=== PATIENT | female | born 1945 | race Caucasian/White ===

== ENCOUNTER → 2018-07-06 14:18 | Outpatient (CLI) | payer MEDICARE, OTHER, SELFPAY ==
[2018-07-06 14:41] LABS: Add Manual Diff / Slide Review NO; Basophils Percent Auto 0.8 % (0-2); Hematocrit 38.4 % (36-46); Hemoglobin 12.6 g/dL (12.0-16.0); Lymphocytes Percent Auto 35.6 % (25-40); Mean Corpuscular HGB Conc 32.8 % (30-36); Mean Corpuscular Hemoglobin 28.7 PG (26-34); Mean Corpuscular Volume 87.4 fL (80-100); Monocytes Percent Auto 8.8 % (3-14); Neutrophils Absolute Auto 3800 /uL (3000-5900); Neutrophils Percent Auto 53.8 % (50-75); Platelet Count 332 X10^3/uL (150-400); Red Cell Distribution Width 13.5 % (11.6-14.8)
[2018-07-06 14:57] LABS: Alanine Aminotransferase 24 IU/L (9-52); Albumin 4.3 g/dL (3.5-5.0); Albumin Globulin Ratio 1.5 (1.0-2.8); Alkaline Phosphatase 90 U/L (38-126); Aspartate Aminotransferase 27 IU/L (14-36); BUN Creatinine Ratio 15.6 (6-22); Bilirubin Total 0.3 mg/dL (0.2-1.3); Blood Urea Nitrogen 14 mg/dL (7-17); Calcium 9.1 mg/dL (8.4-10.2); Carbon Dioxide 31 mmol/L (22-32); Chloride 103 mmol/L (98-107); Estimated Glomerular Filt Rate > 60.0 mL/min (>60); Globulin 2.8 g/dL (1.7-4.1); Glucose 111 mg/dL (80-110); HEMOLYSIS < 15 (0-50); Potassium 4.1 mmol/L (3.4-5.1); Sodium 141 mmol/L (137-145); Total Protein 7.1 g/dL (6.3-8.2)
== END ==
PROVIDERS: Family Provider Nurse Practitioner Family; PCP Nurse Practitioner Family; Visit Provider Family Medicine
DX: R14.0 Abdominal distension (gaseous) (principal); R10.9 Unspecified abdominal pain
CPT/HCPCS: 36415; 80053; 85025

== ENCOUNTER → 2018-07-07 11:41 | Outpatient (CLI) | payer MEDICARE, OTHER, SELFPAY | PROVIDERS: Visit Provider Family Medicine | DX: R14.0 Abdominal distension (gaseous) (principal) | CPT/HCPCS: 86677 ==

== ENCOUNTER → 2018-07-18 12:55 | Outpatient (CLI) | payer MEDICARE, OTHER, SELFPAY ==
[2018-07-18 14:00] LABS: Hemoglobin A1C% w Est Avg Glu 5.7 % (4.0-6.0)
== END ==
PROVIDERS: Family Provider Nurse Practitioner Family; PCP Nurse Practitioner Family; Visit Provider Family Medicine
DX: R73.9 Hyperglycemia, unspecified (principal)
CPT/HCPCS: 36415; 83036

== ENCOUNTER 2018-10-17 09:28 | Day surgery (SDC) | payer MEDICARE, OTHER, SELFPAY ==
[2018-10-17 09:41] VITALS: BMI 22.4
[2018-10-17] MEDS: SODIUM CHLORIDE 0.9% 1,000 ML 200 ML IV (10:00)
[2018-10-17 10:14] VITALS: BP 111/63; PULSE 72; RESP 20; TEMP 36.9; O2SAT 98
--- NOTE | 2018-10-17 11:04 | PM.HP.1 ---
History of Present Illness Date Patient Seen: 10/17/18 Time Patient Seen: 11:04 Chief complaint: Colonoscopy/EGD; [id number] Narrative: Patient here for an EGD to evaluate upper abdominal pain in for screening colonoscopy. Abdominal pain process. Patient History Medical History Chronic back pain (Chronic) Foot pain (Chronic) Lumbar disc disease (Chronic) Osteoarthritis (Chronic) Osteoporosis (Chronic) Shoulder pain (Chronic) Skin problem (Chronic) Chicken pox (Resolved) Measles (Resolved) Mumps (Resolved) Surgical History History of cataract removal with insertion of prosthetic lens (Resolved ~2014) History of surgical removal of ganglion cyst (Resolved ~1958) History of tubal ligation (Resolved ~1978) Family & Social History Family History: Reviewed 10/17/18 by Cosme Bingham MD Social History: household members spouse other hiking,kayaking Tobacco & Substance use: Smoking Status Former smoker alcohol intake current Meds Home Medications Medication Instructions Recorded Confirmed Type Calcium Antacid 360 mg PO BID 10/17/18 10/17/18 History ascorbic acid (vitamin C) 50 mg PO BID 10/17/18 10/17/18 History cholecalciferol (vitamin D3) 800 units PO BID 10/17/18 10/17/18 History magnesium 175 mg PO BID 10/17/18 10/17/18 History vitamin K2 50 mg PO BID 10/17/18 10/17/18 History Allergies Allergy/AdvReac Type Severity Reaction Status Date / Time No Known Drug Allergies Allergy Verified 06/02/18 09:22 Review of Systems Review of Systems All systems reviewed & are unremarkable except as noted in HPI and below Musculoskeletal Comments: Chronic back issues Exam Vital Signs (past 8 hours): - 10/17/18 10:14 Temperature 98.5 F Pulse Rate 72 Respiratory Rate 20 Blood Pressure 111/63 Pulse Oximetry 98 Oxygen Delivery Method Room Air Narrative Exam Narrative: Been cooperative woman in no apparent distress. Lungs are clear to auscultation. No rales rhonchi. Heart regular rate and rhythm without murmur gallop. Abdomen is scaphoid soft nontender without masses. No hernias appreciated. Assessment & Plan Plan: Assessment/Plan Narrative: Patient for a EGD to evaluate upper abdominal pain of for screening colonoscopy. I have discussed the procedure and the rationale with the patient including risks of bleeding, perforation which would necessitate a major operation, failure to find remove all lesions and the potential to tattoo. They appeared to understand and wished to proceed.
--- NOTE | 2018-10-17 11:14 | PM.PREOP ---
Pre-operative Note Interval Note Pre-op Check: Yes History & Physical exam performed today by Physician Changes: No ASA Class (for procedural sedation): I
[2018-10-17] MEDS: fentaNYL 250 MCG/5 ML INJ IV (11:28)
[2018-10-17] MEDS: MIDAZOLAM 5 MG/5 ML VIAL IV (11:29)
[2018-10-17] MEDS: LIDOCAINE 4% SOLN 50 ML 20 ML TOP (11:30)
[2018-10-17] MEDS: TETRACAINE/BENZOCAINE/BUTAMBEN (CETACAINE) BOTTLE 1 SPRAY TOP (11:31)
--- NOTE | 2018-10-17 11:59 | PM.OP.ENDO ---
Operative Date/Time/Diagnoses Date of procedure: 10/17/18 Time of procedure: 12:00 Pre-op diagnosis: Upper abdominal pain. Screening colonoscopy. Post-op diagnosis: same (Normal upper tract. Occasional sigmoid diverticulosis. Small internal hemorrhoids.) Procedure & Clinicians Study performed: EGD. Colonoscopy. Same procedure as scheduled: Yes Indications: Evaluate cause of upper abdominal pain. Screening colonoscopy exam. Surgeon: Cosme Bingham Procedure Notes SCOAP/Timeout: Performed Procedure in detail: The patient had topical anesthetic applied to oropharynx. She was placed in left lateral decubitus position and underwent IV sedation directed by the surgeon consisting of fentanyl and Versed. A bite block was inserted and the scope was advanced through it into the esophagus. The esophagus was unremarkable. GE junction was noted at 39 cm from the incisors. The stomach insufflated well. There were no lesions seen in the body, antrum or at the incisura. The pyloric channel was patent. The duodenum was unremarkable to the 4th part. The scope was brought back into the stomach and retroflexed. The proximal stomach unremarkable. The scope was straightened and brought out through the esophagus again. No lesions were seen. The scope was removed and the patient tolerated the procedure well. The patient was placed in the left lateral decubitus position and underwent IV sedation directed by the surgeon consisting of fentanyl and Versed. Digital exam was unremarkable. The scope was inserted and advanced through the rectum into the sigmoid, descending, transverse, and ascending colon. It was very difficult to progress through this patient's colon. It appeared to be quite redundant and very difficult to insufflate. We added a stiffener, applied pressure, repositioned the patient. Ultimately The cecum was reached identified by the ileocecal valve and the appendiceal opening. The scope was gradually brought out. No Polyps were found . The scope ultimately was retroflexed in the rectum. The appearance was consistent with small internal hemorrhoids without ulceration. The scope was removed and the patient tolerated the procedure well Scope withdrawal time: 8 min Sedation minutes: 31 Findings: diverticulosis (A few sigmoid), internal hemorrhoids and other findings (Normal upper endoscopy) Specimen(s): none sent Complications: none Recommendations: Other recommendation (Given patient's age, further screening colonoscopy is not recommended.) Plan for aftercare: Follow-up with primary care physician Follow up: as needed Disposition: PACU
[2018-10-17 12:02] VITALS: BP 96/58; PULSE 60; RESP 14; TEMP 36.4; O2SAT 97
[2018-10-17 12:35] VITALS: BP 109/55; PULSE 56; RESP 16; TEMP 36.8; O2SAT 100
[2018-10-17 13:58] LABS: Adenovirus F 40/41 Not Detected (Not Detect); Astrovirus Not Detected (Not Detect); Campylobacter Not Detected (Not Detect); Clostridium difficile toxin AB Not Detected (Not Detect); Cryptosporidium Not Detected (Not Detect); Cyclospora cayetanensis Not Detected (Not Detect); Entamoeba histolytica Not Detected (Not Detect); Enteroaggregative E.coli Not Detected (Not Detect); Enteropathogenic E.coli Not Detected (Not Detect); Enterotoxigenic E.coli It/st Not Detected (Not Detect); Giardia lamblia Not Detected (Not Detect); Norovirus GI/GII Not Detected (Not Detect); Plesiomonsa shigelloides Not Detected (Not Detect); Rotavirus A Not Detected (Not Detect); Salmonella Not Detected (Not Detect); Sapovirus Not Detected (Not Detect); Shiga-like toxin-prod E.coli Not Detected (Not Detect); Shigella/Enteroinvasive E.coli Not Detected (Not Detect); Vibrio Not Detected (Not Detect); Vibrio cholerae Not Detected (Not Detect); Yersinia enterocolitica Not Detected (Not Detect)
== END 2018-10-17 12:49 | disposition home or self-care (01) ==
PROVIDERS: PCP Family Medicine; Visit Provider Specialist
PROC: 0DJ08ZZ Inspection of Upper Intestinal Tract, Via Natural or Artificial Opening Endoscopic (ICD-10-PCS; CPT 43235; principal; 2018-10-17 10:45)
PROC: 0DJD8ZZ Inspection of Lower Intestinal Tract, Via Natural or Artificial Opening Endoscopic (ICD-10-PCS; CPT 45378; 2018-10-17 10:45)
DX: Z12.11 Encounter for screening for malignant neoplasm of colon (principal); R10.10 Upper abdominal pain, unspecified; Z87.891 Personal history of nicotine dependence; K57.30 Diverticulosis of large intestine without perforation or abscess without bleeding; K64.8 Other hemorrhoids
CPT/HCPCS: 43235; G0121; 87507; 99152; 99153; J2250; J3010

== ENCOUNTER → 2019-02-08 12:13 | Outpatient (CLI) | payer MEDICARE, OTHER, SELFPAY ==
--- NOTE | 2019-02-08 12:16 | DI.RAD.S_ITS ---
PROCEDURE: XR RIBS LT MIN 3V W CXR1V INDICATIONS: fall, pain TECHNIQUE: 2 views of the left ribs were acquired, along with a single view chest. COMPARISON: [facility], SHOULDER MINIMUM 2 VIEW LEFT, 01/20/2014, 11:12. [facility], SHOULDER MINIMUM 2VIEW RIGHT, 01/20/2014, 11:12. FINDINGS: Surgical changes and devices: None. Bones and chest wall: Suspect nondisplaced left 10th and 11th rib fractures. No suspicious bony lesions. Overlying soft tissues appear unremarkable. Bilateral chronic humeral neck fractures. Lungs and pleura: No pneumothorax. Trace left pleural effusion. Lungs appear clear. Mediastinum: Mediastinal contours appear normal. Heart size is normal. IMPRESSION: 1. Suspect nondisplaced left 10th and 11th rib fractures. 2. Trace left effusion may be hemothorax. 3. Old humeral head fractures bilaterally. Dictated by: Dave Correa M.D. on 02/08/2019 at 17:04 Approved by: Dave Correa M.D. on 02/08/2019 at 17:14
== END ==
PROVIDERS: Family Provider Physical Therapist; PCP Family Medicine; Visit Provider Family Medicine
DX: R07.81 Pleurodynia (principal)
CPT/HCPCS: 71101

== ENCOUNTER → 2019-04-04 15:03 | Outpatient (CLI) | payer MEDICARE, OTHER, SELFPAY ==
--- NOTE | 2019-04-04 15:07 | DI.RAD.S_ITS ---
PROCEDURE: XR LUMBAR SPINE MIN 4V INDICATIONS: Mid-Upper and lower back pain TECHNIQUE: 3 views of the lumbar spine were acquired. COMPARISON: [facility], , L-SPINE 2-3 VIEWS, 11/03/2017, 15:17. FINDINGS: Bones: 5 nonrib-bearing vertebrae are present. There are rudimentary ribs at the presumed T12 level. There is mild retrolisthesis at T12-L1, L1-L2, and L2-L3 which appear similar to the prior study. Minimal anterolisthesis is also redemonstrated at L3-L4 and L4-L5. Visualized osseous structures appear osteopenic. There is new moderate endplate scalloping along the superior and inferior endplates of L2 and L3 compared to the prior study. Mild superior endplate scalloping of the L4 vertebral body is also new from the prior study. A mild superior endplate compression deformity of the T12 vertebral body and inferior endplate scalloping at L4 are redemonstrated. No retropulsed fragments in the spinal canal. There is mild to moderate facet arthropathy in the lower lumbar spine. Soft tissues: Overlying bowel gas pattern is normal. No suspicious soft tissue calcifications. Oblique images: No pars defects. IMPRESSION: 1. New endplate compression deformities in the L2, L3, and L4 vertebral bodies. No retropulsed fragments in the spinal canal. 2. Mild multilevel spondylolisthesis appear similar to the prior study. 3. Facet arthropathy redemonstrated in the lower lumbar spine. Dictated by: Roberto Julien M.D. on 04/04/2019 at 16:32 Approved by: Roberto Julien M.D. on 04/04/2019 at 16:38
--- NOTE | 2019-04-04 15:07 | DI.RAD.S_ITS ---
PROCEDURE: XR SACRUM COCCYX MIN 2V INDICATIONS: Mid-Upper and lower back pain TECHNIQUE: 3 views of the sacrum and coccyx acquired. COMPARISON: [facility], [place], L-SPINE 2-3 VIEWS, 11/03/2017, 15:17. [facility], [place], XR LUMBAR SPINE MIN 4V, 04/04/2019, 15:14. FINDINGS: Bones: There is osteopenia of the visualized osseous structures. Endplate scalloping is demonstrated within the lower lumbar spine as described on the concurrent study of the lumbar spine. No definite fracture demonstrated in the sacrum or coccyx. Visualized bony pelvis also appears intact. Soft tissues: Visualized bowel gas pattern is normal. No suspicious soft tissue densities. IMPRESSION: 1. No definite sacral fracture identified. 2. Mild endplate compression deformities within the lower lumbar spine noted. Recommend correlation with concurrent lumbar spine report. Dictated by: Roberto Julien M.D. on 04/04/2019 at 16:45 Approved by: Roberto Julien M.D. on 04/04/2019 at 16:48
--- NOTE | 2019-04-04 15:07 | DI.RAD.S_ITS ---
PROCEDURE: XR THORACIC SPINE 3V INDICATIONS: Mid-Upper and lower back pain TECHNIQUE: 3 views of the thoracic spine were acquired. COMPARISON: [facility], [place], L-SPINE 2-3 VIEWS, 11/03/2017, 15:17. [facility], [place], XR LUMBAR SPINE MIN 4V, 04/04/2019, 15:14. FINDINGS: Bones: There is mild inferior endplate scalloping within the T7 vertebral body of indeterminate acuity. No retropulsed fragments in the spinal canal. A mild superior endplate compression deformity of the T12 vertebral body is redemonstrated, similar in appearance to the prior study from 2017. Mild superior endplate scalloping at L1 and L2 are new compared to the prior study and are described on the concurrent lumbar spine exam. No suspicious bony lesions. 12 pairs of ribs are noted, and appear intact where visualized. There are rudimentary ribs at T12. Soft tissues: No paravertebral stripe thickening. IMPRESSION: 1. Mild inferior endplate scalloping of the T7 vertebral body of indeterminate acuity. 2. Mild superior endplate compression deformity at T12 appears similar to the prior study. 3. Please refer to report for concurrent study of the lumbar spine for compression deformities within the lumbar spine. Dictated by: Roberto Julien M.D. on 04/04/2019 at 16:48 Approved by: Roberto Julien M.D. on 04/04/2019 at 16:50
== END ==
PROVIDERS: Family Provider Physical Therapist; PCP Family Medicine; Visit Provider Family Medicine
DX: M54.6 Pain in thoracic spine (principal); M54.5 Low back pain; M47.816 Spondylosis without myelopathy or radiculopathy, lumbar region; M43.16 Spondylolisthesis, lumbar region; M85.88 Other specified disorders of bone density and structure, other site
CPT/HCPCS: 72072; 72110; 72220

== ENCOUNTER → 2019-08-29 08:46 | Outpatient (CLI) | payer MEDICARE, OTHER, SELFPAY ==
[2019-08-29 09:26] LABS: Add Manual Diff / Slide Review NO; Basophils Absolute Auto 0 /uL (0-100); Basophils Percent Auto 0.8 % (0-2); Eosinophils Absolute Auto 100 /uL (0-450); Eosinophils Percent Auto 2.1 % (2-4); Hematocrit 39.9 % (36-46); Hemoglobin 13.1 g/dL (12.0-16.0); Lymphocytes Absolute Auto 2500 /uL (1100-4500); Lymphocytes Percent Auto 40.5 % (25-40); Mean Corpuscular HGB Conc 32.8 % (30-36); Mean Corpuscular Hemoglobin 29.1 PG (26-34); Mean Corpuscular Volume 88.7 fL (80-100); Monocytes Absolute Auto 500 /uL (0-900); Monocytes Percent Auto 8.1 % (3-14); Neutrophils Absolute Auto 3000 /uL (1500-7000); Neutrophils Percent Auto 48.5 % (50-75); Platelet Count 379 X10^3/uL (150-400); Red Blood Cell Count 4.49 X10^6/uL (4.0-5.2); Red Cell Distribution Width 14.3 % (11.6-14.8); White Blood Cell Count 6.2 X10^3/uL (4.5-11.0)
[2019-08-29 09:52] LABS: Alanine Aminotransferase 13 IU/L (9-52); Albumin 4.1 g/dL (3.5-5.0); Albumin Globulin Ratio 1.4 (1.0-2.8); Alkaline Phosphatase 147 U/L (38-126); Aspartate Aminotransferase 26 IU/L (14-36); BUN Creatinine Ratio 24.3 (6-22); Bilirubin Total 0.3 mg/dL (0.2-1.3); Blood Urea Nitrogen 17 mg/dL (7-17); Calcium 8.9 mg/dL (8.4-10.2); Carbon Dioxide 31 mmol/L (22-32); Chloride 105 mmol/L (98-107); Cholesterol 224 mg/dL (140-199); Estimated Glomerular Filt Rate > 60.0 mL/min (>60); Glucose 91 mg/dL (80-110); HDL Cholesterol 69 mg/dL (40-60); HEMOLYSIS < 15 (0-50); LDL Cholesterol Calculated 136 mg/dL (<100); Potassium 3.7 mmol/L (3.4-5.1); Sodium 140 mmol/L (137-145); Total Protein 7.1 g/dL (6.3-8.2); Triglycerides 93 mg/dL (35-150)
[2019-08-29 10:01] LABS: Vitamin D 25 Hydroxy (D3) 51.5 ng/mL (30.0-100.0)
[2019-08-29 10:48] LABS: Calcium 24 Hour Urine 286 mg/day (100-300); Collection Time Urine 24 Hours; Total Volume Urine 2200 mL
[2019-08-29 11:31] LABS: Thyroid Stimulating Hormone 1.88 uIU/mL (0.47-4.68)
[2019-08-30 16:30] LABS: Free T3, Triiodothyronine Free 4.02 pg/mL (2.77-5.27); Free T4, Direct Thyroxine 1.34 ng/dL (0.78-2.19)
[2019-09-01 12:19] LABS: Cortisol, Free, Urine 13.4 mcg/24 h (4.0-50.0); Total Volume 2200 mL
== END ==
PROVIDERS: Family Provider Physical Therapist; PCP Family Medicine; Visit Provider Family Medicine
DX: M81.0 Age-related osteoporosis without current pathological fracture (principal); Z13.220 Encounter for screening for lipoid disorders; Z79.899 Other long term (current) drug therapy; E78.5 Hyperlipidemia, unspecified
CPT/HCPCS: 80053; 80061; 82306; 82340; 82530; 84439; 84443; 84481; 85025

== ENCOUNTER → 2020-04-17 13:59 | Outpatient (CLI) | payer MEDICARE, OTHER, SELFPAY | PROVIDERS: Family Provider Physical Therapist; PCP Family Medicine; Referring Provider Family Medicine; Visit Provider Family Medicine | DX: M81.0 Age-related osteoporosis without current pathological fracture (principal); Z78.0 Asymptomatic menopausal state; Z82.62 Family history of osteoporosis; Z87.891 Personal history of nicotine dependence | CPT/HCPCS: 77080 ==

== ENCOUNTER → 2020-12-23 08:29 | Outpatient (CLI) | payer MEDICARE, OTHER, SELFPAY ==
--- NOTE | 2020-12-23 08:32 | DI.RAD.S_ITS ---
PROCEDURE: XR THORACIC SPINE 3V INDICATIONS: back pain TECHNIQUE: 3 views of the thoracic spine were acquired. COMPARISON: [facility], CR, XR THORACIC SPINE 3V, 04/04/2019, 15:14. FINDINGS: Bones: There is generalized osteopenia. When compared to the radiographs from 04/04/2019, multiple new compression fractures are seen involving the T2, T3, T5, T6, T9, and T11 vertebrae. Inferior endplate depression at the T7 level and superior endplate of T12 do not appear significantly changed when compared to the prior radiographs. Upper lumbar compression fractures also do not appear significantly changed. No suspicious bony lesions. Twelve pairs of ribs are noted, including a rudimentary rib pair at the T12 level. Soft tissues: No paravertebral stripe thickening. IMPRESSION: Generalized osteopenia with numerous compression fractures throughout the thoracic spine, most of which appear new when compared to the prior radiographs from 04/04/2019. Dictated by: Angel Luis Javier M.D. on 12/23/2020 at 9:09 Approved by: Angel Luis Javier M.D. on 12/23/2020 at 9:21
== END ==
PROVIDERS: Family Provider Physical Therapist; PCP Family Medicine; Referring Provider Family Medicine; Visit Provider Family Medicine
DX: M54.6 Pain in thoracic spine (principal); M81.0 Age-related osteoporosis without current pathological fracture; M48.54XA Collapsed vertebra, not elsewhere classified, thoracic region, initial encounter for fracture
CPT/HCPCS: 72072

== ENCOUNTER → 2021-01-27 13:35 | Outpatient (CLI) | payer MEDICARE, OTHER, SELFPAY ==
--- NOTE | 2021-01-27 13:42 | DI.RAD.S_ITS ---
PROCEDURE: XR ABDOMEN 1V INDICATIONS: swallowed dangly earrings, scratching throat, retrieved one TECHNIQUE: One view of the abdomen acquired. COMPARISON: [facility], , L-SPINE 2-3 VIEWS, 11/03/2017, 15:17. FINDINGS: Surgical changes and devices: None. Bowel: No evidence of obstruction. No radiopaque foreign body identified. No free air Soft tissues: No suspicious abdominal calcifications. Visualized solid organ contours appear normal in size. Bones: No suspicious bony lesions. IMPRESSION: Clinically reported ingested foreign body not identified. No evidence of bowel obstruction Dictated by: Thad Cavazos M.D. on 01/27/2021 at 14:11 Approved by: Thad Cavazos M.D. on 01/27/2021 at 14:13
--- NOTE | 2021-01-27 13:42 | DI.RAD.S_ITS ---
PROCEDURE: XR SOFT TISSUE NECK INDICATIONS: swallowed dangly earrings, scratching throat, retrieved one TECHNIQUE: 2 views of the neck were acquired. COMPARISON: None. FINDINGS: Airway: The airway appears patent. Soft tissues: Prevertebral soft tissues are normal in thickness. The epiglottis and aryepiglottic folds appear normal. No soft tissue gas. No radiopaque foreign body identified. Bones: Numerous age-indeterminate thoracic compression fractures. Spondylitic changes. IMPRESSION: Clinically reported ingested foreign body not identified. Additional chronic and incidental findings as above. Dictated by: Thad Cavazos M.D. on 01/27/2021 at 14:13 Approved by: Thad Cavazos M.D. on 01/27/2021 at 14:15
== END ==
PROVIDERS: Family Provider Physical Therapist; PCP Family Medicine; Referring Provider Physician Assistant; Visit Provider Physician Assistant
DX: T18.9XXA Foreign body of alimentary tract, part unspecified, initial encounter (principal); M48.54XA Collapsed vertebra, not elsewhere classified, thoracic region, initial encounter for fracture; M47.814 Spondylosis without myelopathy or radiculopathy, thoracic region
CPT/HCPCS: 70360; 74018

== ENCOUNTER → 2021-04-08 08:46 | Outpatient (CLI) | payer MEDICARE, OTHER, SELFPAY ==
[2021-04-08 10:00] LABS: Add Manual Diff / Slide Review NO; Basophils Absolute Auto 0 /uL (0-100); Basophils Percent Auto 0.7 % (0-2); Eosinophils Absolute Auto 100 /uL (0-450); Eosinophils Percent Auto 1.3 % (2-4); Hematocrit 38.2 % (36-46); Hemoglobin 12.8 g/dL (12.0-16.0); Lymphocytes Absolute Auto 2600 /uL (1100-4500); Lymphocytes Percent Auto 41.8 % (25-40); Mean Corpuscular HGB Conc 33.4 % (30-36); Mean Corpuscular Hemoglobin 29.7 PG (26-34); Mean Corpuscular Volume 88.8 fL (80-100); Monocytes Absolute Auto 600 /uL (0-900); Monocytes Percent Auto 9.3 % (3-14); Neutrophils Absolute Auto 3000 /uL (1500-7000); Neutrophils Percent Auto 46.9 % (50-75); Platelet Count 344 X10^3/uL (150-400); Red Blood Cell Count 4.31 X10^6/uL (4.0-5.2); Red Cell Distribution Width 13.8 % (11.6-14.8); White Blood Cell Count 6.3 X10^3/uL (4.5-11.0)
[2021-04-08 10:26] LABS: Alanine Aminotransferase 16 IU/L (<35); Albumin Globulin Ratio 1.4 (1.0-2.8); Alkaline Phosphatase 108 U/L (38-126); Aspartate Aminotransferase 27 IU/L (14-36); Bilirubin Total 0.5 mg/dL (0.2-1.3); Blood Urea Nitrogen 18 mg/dL (7-17); Calcium 9.1 mg/dL (8.4-10.2); Carbon Dioxide 30 mmol/L (22-32); Chloride 102 mmol/L (98-107); Estimated Glomerular Filt Rate > 60.0 mL/min (>60); Globulin 2.8 g/dL (1.7-4.1); Glucose 99 mg/dL (80-110); HEMOLYSIS < 15 (0-50); Potassium 4.3 mmol/L (3.4-5.1); Sodium 139 mmol/L (137-145); Total Protein 6.8 g/dL (6.3-8.2)
== END ==
PROVIDERS: Family Provider Physical Therapist; PCP Family Medicine; Referring Provider Family Medicine; Visit Provider Family Medicine
DX: R25.2 Cramp and spasm (principal)
CPT/HCPCS: 36415; 80053; 83735; 85025

== ENCOUNTER → 2022-04-23 12:54 | Outpatient (CLI) | payer MEDICARE, OTHER, SELFPAY | PROVIDERS: Family Provider Physical Therapist; PCP Family Medicine; Referring Provider Internal Medicine; Visit Provider Internal Medicine | DX: M81.0 Age-related osteoporosis without current pathological fracture (principal); Z78.0 Asymptomatic menopausal state; K58.9 Irritable bowel syndrome, unspecified | CPT/HCPCS: 77080 ==

== ENCOUNTER → 2023-04-04 10:19 | Outpatient (CLI) | payer MEDICARE, OTHER, SELFPAY ==
--- NOTE | 2023-04-04 10:21 | DI.US.S_ITS ---
PROCEDURE: US ABDOMEN LIMITED INDICATIONS: POSTPRANDIAL ABDOMEN PAIN - RULE OUT GALLBLADDER DISEASE TECHNIQUE: Real-time focused scanning was performed of the abdomen, with image documentation. COMPARISON: None. FINDINGS: Coarsened heterogeneous hepatic echotexture. Liver measures 13 cm overall. Gallbladder is within normal limits. No focal tenderness. CBD measures 5 mm. Visualized pancreas within normal limits. Right renal parapelvic cyst measuring 1.5 cm. IMPRESSION: No acute gallbladder pathology. No focal tenderness. CBD measures 5 mm, within normal limits. Hepatic echotexture is moderately coarse and heterogeneous, suggestive of chronic hepatocellular disease. Dictated by: Manuel Obregon M.D. on 04/04/2023 at 11:21 Approved by: Manuel Obregon M.D. on 04/04/2023 at 11:23
== END ==
PROVIDERS: Family Provider Physical Therapist; PCP Student in an Organized Health Care Education/Training Program; Referring Provider Surgery; Visit Provider Surgery
DX: R10.9 Unspecified abdominal pain (principal)
CPT/HCPCS: 76705

== ENCOUNTER 2023-04-21 12:08 | Day surgery (SDC) | payer MEDICARE, OTHER, SELFPAY ==
[2023-04-21 12:46] VITALS: BP 128/75; PULSE 79; RESP 17; TEMP 36.3; O2SAT 96; BMI 23.6
[2023-04-21] MEDS: LACTATED RINGERS 1,000 ML 120 ML IV (13:02)
--- NOTE | 2023-04-21 13:02 | PM.HP.1 ---
History of Present Illness History of Present Illness Date Patient Seen: 04/21/23 Time Patient Seen: 13:02 Chief complaint: Dx Colonoscopy & EGD w/poss bx's Narrative: Geeta is here for her EGD and colonoscopy. See office note from March for details. In summary, she has a positive fit test and she has had some dyspepsia. She had a normal ultrasound of her gallbladder. [facility] Medical History (Updated 04/21/23 @ 12:42 by Monse Chatman RN) Asthma Chicken pox Chronic back pain Foot pain Hypercholesteremia Hyperlipemia Lumbar disc disease Measles Mumps Osteoarthritis Osteoporosis Pneumonia Shoulder pain Skin problem Swallowed foreign body Surgical History History of cataract removal with insertion of prosthetic lens (~2014) History of surgical removal of ganglion cyst (~1958) History of tubal ligation (~1978) Family History Father Colon cancer Mother Congestive heart failure Stroke Grandmother Colon cancer Grandmother Breast cancer Social History marital status: household members: spouse pets and animals: Yes education level: college occupational status: other leisure activities: music and reading other: hiking,kayaking seatbelt use: always helmet use: No water heater temp set < 120 deg: Yes working smoke detector in home: Yes fire extinguisher in home: Yes carbon monox detector in home: Yes firearms in home: No Smoking Status: Former smoker alcohol intake: current during the past year weight has: decreased > 10 lbs well-balanced diet: daily or most days daily servings fruits/ve-4 caffeine: Yes eating out: 1-3 times/week Type(s) of exercise: walking frequency: daily Meds Home Medications and Allergies Allergies Allergy/AdvReac Type Severity Reaction Status Date / Time No Known Drug Allergies Allergy Verified 04/21/23 12:44 Exam Vital Signs (past 8 hours): - 04/21/23 12:46 Temperature 97.4 F L Pulse Rate 79 Respiratory Rate 17 Blood Pressure 128/75 Pulse Oximetry 96 Oxygen Delivery Method Room Air Oxygen Delivery Method Room Air Const General: No acute distress Assessment & Plan Assessment and plan (1) Abdominal pain: Qualifiers: Abdominal location: upper abdomen, unspecified Qualified Code(s): R10.10 - Upper abdominal pain, unspecified Status: Acute (2) Positive FIT (fecal immunochemical test): Status: Acute Plan We reviewed the risks and benefits of EGD and colonoscopy and she would like to proceed.
[2023-04-21 13:39] VITALS: BP 100/62; PULSE 70; RESP 18; TEMP 36.6; O2SAT 98
--- NOTE | 2023-04-21 13:42 | PM.OP.EC ---
Operative Date/Time/Diagnoses Date of procedure: 04/21/23 Time of procedure: 13:42 Pre-op diagnosis: Dyspepsia and positive fit test Post-op diagnosis: same Procedure & Clinicians Study performed: EGD and colonoscopy Same procedure as scheduled: Yes Surgeon: Kareem Townsend Procedure Notes Procedure in detail: Surgeon: Kareem Townsend MD Anesthesia: Luz Cross CRNA Procedure in detail: A timeout was performed. A bite blocked was placed and monitors were attached to the patient. The patient was positioned in a left lateral decubitus position. Sedation was administered by Luz Cross CRNA. Once the patient was sedated the endoscope was inserted through the bite block and passed through the esophagus and stomach and into the duodenum. No abnormalities were seen. We then withdrew the scope into the stomach. No abnormalities were seen. The endoscope was retroflexed and a small hiatal hernia was noted. The endoscope was straightned and withdrawn into the esophagus. No other abnormalities were seen. Findings: A small hiatal hernia Next we repositioned the patient for a colonoscopy. A digital rectal exam was performed and was normal. The colonoscope was inserted and advanced to the cecum. The appendiceal orifice was identified and photographed. The scope was slowly withdrawn over greater than 6 minutes. No abnormalities were seen. The scope was retroflexed in the rectum and no abnormalities were seen. Findings: Normal colon EBL: 0 Scope withdrawal time: 6 minutes Sedation minutes: 28 minutes Post-procedure Disposition: PACU
[2023-04-21 13:44] VITALS: BP 104/56; PULSE 69; RESP 16; TEMP 36.6; O2SAT 98
[2023-04-21 13:49] VITALS: BP 105/62; PULSE 63; RESP 14; TEMP 36.6; O2SAT 100
[2023-04-21 14:03] VITALS: BP 109/61; PULSE 60; RESP 14; TEMP 36.6; O2SAT 98
== END 2023-04-21 14:05 | disposition home or self-care (01) ==
PROVIDERS: Family Provider Physical Therapist; PCP Student in an Organized Health Care Education/Training Program; Referring Provider Surgery; Visit Provider Surgery
PROC: 0DJD8ZZ Inspection of Lower Intestinal Tract, Via Natural or Artificial Opening Endoscopic (ICD-10-PCS; CPT 45378; principal; 2023-04-21 13:15)
PROC: 0DJ08ZZ Inspection of Upper Intestinal Tract, Via Natural or Artificial Opening Endoscopic (ICD-10-PCS; CPT 43235; 2023-04-21 13:15)
DX: R19.5 Other fecal abnormalities (principal); Z12.11 Encounter for screening for malignant neoplasm of colon; R10.13 Epigastric pain; K44.9 Diaphragmatic hernia without obstruction or gangrene
CPT/HCPCS: 43235; G0121; J2704

== ENCOUNTER → 2024-05-15 09:43 | Outpatient (CLI) | payer MEDICARE, OTHER, SELFPAY ==
--- NOTE | 2024-05-15 09:45 | DI.RAD.S_ITS ---
PROCEDURE: XR DEXA AXIAL SKELETON INDICATIONS: ROUTINE SCREENING COMPARISON: [facility], [place], XR DEXA AXIAL SKELETON, 04/23/2022, 13:16. FINDINGS: Lumbar Spine: L1, L2, L4. Bone mineral density 0.842 g/cm2, T score -1.7. Left Hip: Bone mineral density 0.655 g/cm2, T score -2.4. Left Femoral Neck: Bone mineral density 0.552 g/cm2, T score -2.7. Right Hip: Bone mineral density 0.651 g/cm2, T score -2.4. Right Femoral Neck: Bone mineral density 0.580 g/cm2, T score -2.4. Fracture Risk Calculation (when applicable): 10-year fracture risk of a major osteoporotic fracture 49% and of a hip fracture 35%. (T score greater or equal to -1.0 to: NORMAL) (T score from -1.1 to -2.4: OSTEOPENIA) (T score less than or equal to -2.5: OSTEOPOROSIS) IMPRESSION: Osteoporosis. Follow-up guidelines as follows: Osteoporosis: Consider a repeat DEXA and Vertebral Fracture Assessment (VFA) exam in 2 years or sooner if medically necessary, to reassess this patient's status. Osteopenia: Consider a repeat DEXA in 2-3 years to reassess this patient's status, or if there is a new clinical indication. Normal: Consider a repeat DEXA in 5 years or sooner, or if there is a new clinical indication. All treatment decisions require clinical judgment and consideration of individual patient factors, including patient preferences, comorbidities, previous drug use, risk factors not captured in the FRAX model (e.g., frailty, falls, vitamin D deficiency, increased bone turnover, interval significant decline in bone density ) and possible under- or over-estimation of fracture risk by FRAX. In addition, the NOF Guide recommends that FDA-approved medical therapies be considered in postmenopausal women and men age >= 50 years with a: * Hip or vertebral (clinical or morphometric) fracture * T-score of <=-2.5 at the spine or hip * Ten-year fracture probability by FRAX of >= 3% for hip fracture or >=20% for major osteoporotic fracture. People with diagnosed cases of osteoporosis or at high risk for fracture should have regular bone mineral density tests. For patients eligible for Medicare, routine testing is allowed once every 2 years. The testing frequency can be increased to one year for patients who have rapidly progressing disease, those who are receiving or discontinuing medical therapy to restore bone mass, or have additional risk factors. Dictated by: Bernard Nolan M.D. on 05/15/2024 at 13:16 Approved by: Bernard Nolan M.D. on 05/15/2024 at 13:18
== END ==
LOC: RAD 09:45
PROVIDERS: Family Provider Physical Therapist; PCP Student in an Organized Health Care Education/Training Program; Referring Provider Student in an Organized Health Care Education/Training Program; Visit Provider Student in an Organized Health Care Education/Training Program
DX: M81.0 Age-related osteoporosis without current pathological fracture (principal); N95.9 Unspecified menopausal and perimenopausal disorder
CPT/HCPCS: 77080

== ENCOUNTER → 2024-12-28 11:44 | Outpatient (CLI) | payer MEDICARE, OTHER, SELFPAY ==
--- NOTE | 2024-12-28 11:47 | DI.RAD.S_ITS ---
PROCEDURE: XR ANKLE LT MIN 3V INDICATIONS: ANKLE PAIN TECHNIQUE: 3 views of the ankle were acquired. COMPARISON: None. FINDINGS: Bones: No fractures or dislocations. Ankle mortise is normally aligned. No suspicious bony lesions. Soft tissues: No tibiotalar joint effusion. Achilles tendon appears normal. IMPRESSION: No acute bony abnormality or significant effusion. Dictated by: Heather Alexis M.D. on 12/28/2024 at 13:19 Approved by: Heather Alexis M.D. on 12/28/2024 at 13:21
--- NOTE | 2024-12-28 11:48 | DI.RAD.S_ITS ---
PROCEDURE: XR SHOULDER LT MIN 2V INDICATIONS: SHOULDER PAIN TECHNIQUE: 3 views of the shoulder were acquired. COMPARISON: None. FINDINGS: Bones: There is old fracture deformity involving the left humeral head neck with angulation and impaction. No acute fractures or dislocations are identified. Soft tissues: There is an adjacent humeral head small calcification possibly a synovial osteochondroma. IMPRESSION: Old fracture deformity involving the left humeral head and neck. Dictated by: Heather Alexis M.D. on 12/28/2024 at 13:16 Approved by: Heather Alexis M.D. on 12/28/2024 at 13:19
== END ==
LOC: RAD 11:46
PROVIDERS: Family Provider Physical Therapist; PCP Student in an Organized Health Care Education/Training Program; Referring Provider Family Medicine; Visit Provider Family Medicine
DX: M77.52 Other enthesopathy of left foot and ankle (principal); M77.8 Other enthesopathies, not elsewhere classified; S42.292S Other displaced fracture of upper end of left humerus, sequela
CPT/HCPCS: 73030; 73610